=== PATIENT | male | born 1950 | race Hispanic/Latino ===

== ENCOUNTER 2018-04-10 20:18 | Emergency (ER) | payer MEDICARE, OTHER ==
[2018-04-10 20:25] VITALS: RESP 18
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
[2018-04-10 21:34] LABS: BASO # 0.1 K/uL (0.0-0.2); BASO % 1.3 % (0.0-2.0); EOS # 0.1 K/uL (0.0-0.7); EOS % 1.3 % (0.0-4.0); HEMOGLOBIN 14.2 g/dL (12.0-18.0); LYMPH # 1.7 K/uL (1.0-4.3); LYMPH % 24.9 % (20.0-40.0); MEAN CELL VOLUME 91.5 fl (80.0-94.0); MEAN CORPUSCULAR HEMOGLOBIN 30.9 pg (27.0-31.0); MEAN CORPUSCULAR HGB CONC 33.7 g/dL (33.0-37.0); MEAN PLATELET VOLUME 7.3 fl (7.2-11.7); MONO # 0.4 K/uL (0.0-0.8); MONO % 5.4 % (0.0-10.0); NEUT # 4.6 K/uL (1.8-7.0); NEUT % 67.1 % (50.0-75.0); NRBC % 0.1 % (0.0-0.0); RBC 4.6 Mil/uL (4.40-5.90); RED CELL DISTRIBUTION WIDTH 14.2 % (11.5-14.5); WHITE BLOOD COUNT 6.8 K/uL (4.8-10.8)
[2018-04-10 21:44] LABS: ALB/GLOB RATIO 1.3 (1.0-2.1); ALBUMIN 4.9 g/dL (3.5-5.0); ALT/SGPT 32 U/L (21-72); AST/SGOT 36 U/L (17-59); BLOOD UREA NITROGEN 13 mg/dl (9-20); CALCIUM 9.2 mg/dL (8.4-10.2); GFR NON-AFRICAN AMERICAN > 60
[2018-04-11] MEDS ORDERED: Lidocaine 1% w Epi 1:100,000 Inj ONE (00:40)
[2018-04-11] MEDS ORDERED: Tdap Vaccine 0.5 ml Vial (10-64 yrs) IM ONE ×2 (01:09→05:54)
[2018-04-11 01:54] LABS: URINE BILIRUBIN NEGATIVE (NEGATIVE); URINE BLOOD MODERATE (NEGATIVE); URINE CLARITY CLEAR (Clear); URINE COLOR STRAW (YELLOW); URINE GLUCOSE (UA) NEG (NEGATIVE); URINE LEUKOCYTE ESTERASE NEG Leu/uL (Negative); URINE PROTEIN NEGATIVE (NEGATIVE); URINE UROBILINOGEN 0.2-1.0 mg/dL (0.2-1.0)
[2018-04-11 02:17] LABS: BARBITURATES, UR NEGATIVE (NEGATIVE); BENZODIAZEPINES, UR NEGATIVE (NEGATIVE); OPIATES, UR NEGATIVE (NEGATIVE); PHENCYCLIDINE, UR NEGATIVE (NEGATIVE)
[2018-04-11 05:26] VITALS: BP 116/60; PULSE 91; O2SAT 98
--- NOTE | 2018-04-11 06:03 | CARD ---
APPROVED REPORT Date of service: 04/11/2018 EKG Measurement Heart [id number] <Conclusion> Normal sinus rhythm Septal infarct, age undetermined Abnormal ECG
[2018-04-11 06:59] VITALS: TEMP 98
--- NOTE | 2018-04-11 07:57 | RAD ---
Date of service: 04/11/2018 HISTORY: clearance COMPARISON: No prior. FINDINGS: LUNGS: No active pulmonary disease. PLEURA: No significant pleural effusion identified, no pneumothorax apparent. CARDIOVASCULAR: There is presence of aortic atherosclerotic calcification on x-ray. Normal cardiac size. No pulmonary vascular congestion. OSSEOUS STRUCTURES: No significant abnormalities. VISUALIZED UPPER ABDOMEN: Normal. OTHER FINDINGS: None. IMPRESSION: No active disease.
--- NOTE | 2018-04-11 09:46 | CT ---
Date of service: 04/10/2018 PROCEDURE: CT HEAD WITHOUT CONTRAST. HISTORY: etoh, head injury COMPARISON: None available. TECHNIQUE: Axial computed tomography images were obtained through the head/brain without intravenous contrast. Radiation dose: Total exam DLP = 1183.44 mGy-cm. This CT exam was performed using one or more of the following dose reduction techniques: Automated exposure control, adjustment of the mA and/or kV according to patient size, and/or use of iterative reconstruction technique. FINDINGS: HEMORRHAGE: No intracranial hemorrhage. BRAIN: No mass effect or edema. No atrophy or chronic microvascular ischemic changes. VENTRICLES: Unremarkable. No hydrocephalus. CALVARIUM: Unremarkable. PARANASAL SINUSES: Unremarkable as visualized. No significant inflammatory changes. MASTOID AIR CELLS: Unremarkable as visualized. No inflammatory changes. OTHER FINDINGS: None. IMPRESSION: No intracranial hemorrhage or mass effect. No gross soft tissue scalp swelling appreciated Concordant results (preliminary interpretation) provided by [facility].
--- NOTE | 2018-04-11 11:59 | CT ---
Date of service: 04/10/2018 PROCEDURE: CT MAXILLOFACIAL BONES WITHOUT CONTRAST HISTORY: ETOH, fall COMPARISON: Comparison made with concurrent CT scan brain. TECHNIQUE: Contiguous axial CT images of the maxillofacial bones were obtained. Coronal and sagittal reformats were generated. Radiation dose: Total exam DLP = 788.29 mGy-cm. This CT exam was performed using one or more of the following dose reduction techniques: Automated exposure control, adjustment of the mA and/or kV according to patient size, and/or use of iterative reconstruction technique. FINDINGS: NASAL BONES: There are bilateral nasal bone fractures with minor overlying soft tissue swelling. ORBITS: The bony orbits appear intact. Changes of bilateral cataract surgery however globes are otherwise intact. There are no retrobulbar hemorrhages or collections. There is mild right premaxillary soft tissue swelling that extends superiorly over the right zygomatic arch and right and superolateral orbital rim. Few bubbles of air are also present within the subcutaneous tissues overlying the right zygomatic arch suggesting skin laceration as well. Clinical correlation is recommended. PARANASAL SINUSES/ MASTOIDS: Paranasal sinuses are well developed and currently relatively well-aerated. No fluid levels seen to suggest acute hemorrhage. Move minor mucosal thickening noted within few superior ethmoid air cells. MAXILLA: The maxilla including the anterior nasal spine appears intact.. See above discussion which details right-sided pre maxillary soft tissue swelling MANDIBLE/ TEMPOROMANDIBULAR JOINTS: There is a displaced fracture of the left mandibular condyle with mild inferomedial displacement of the smaller fragment.. SKULL BASE: Unremarkable. TEMPORAL BONES: Middle ears and mastoid grossly unremarkable. OTHER FINDINGS: None. IMPRESSION: The bilateral nasal bone fractures with minor overlying soft tissue swelling. There is a fracture of the left mandibular condyle with mild inferomedial displacement of the smaller fragment. Right-sided facial soft tissue swelling associated with a few subcutaneous bubbles of air that likely due to overlying laceration as detailed above. Cataract surgery.
--- NOTE | 2018-04-11 12:38 | CT ---
Date of service: 04/10/2018 PROCEDURE: CT Cervical Spine without contrast HISTORY: ETOH, fall COMPARISON: None available. TECHNIQUE: Contiguous helical/transaxial sections were obtained of the cervical spine without the use of intravenous contrast. Coronal and sagittal reformatted images were created and reviewed. Radiation dose: Total exam DLP = 328.68 mGy-cm. This CT exam was performed using one or more of the following dose reduction techniques: Automated exposure control, adjustment of the mA and/or kV according to patient size, and/or use of iterative reconstruction technique. FINDINGS: VERTEBRAE: No evidence of acute compression fractures no retropulsed fragments.. Minor chronic appearing anterior stature loss of the C5 and C6 segments on felt to be degenerative in origin. Vertebral bodies otherwise exhibit normal stature. Slight posterior subluxation C3 over C4 and minimal posterior subluxation of C6 over C7. Remaining vertebral bodies otherwise exhibit normal alignment. Facets normally aligned. Exhibit DISCS/SPINAL CANAL/NEURAL FORAMINA: Multilevel degenerative spondylosis. At the C2-C3 level, there is adequate disc height with small central and bilateral disc bulge that indents the ventral surface of the thecal sac with no significant cord compression. The overall central canal appears adequate. Minimal degenerative squaring of the uncovertebral joints. Exit foramina appear adequate on the left and marginal to minimally narrowed on the right. At the C3-C4 level, there is disc space narrowing with broad-based though asymmetric disc ridge complex larger on the right contiguous with hypertrophic uncovertebral joints. The facets also hypertrophic. Changes result in mild canal narrowing and cord compression more so on the right side. Exit foramina are stenotic bilaterally. At the C4-C5 level, there is mild posterior disc space narrowing. Small broad-based disc bulge ridge complex contiguous with hypertrophic uncovertebral joints are noted. Facets also hypertrophic. Changes result in mild flattening of the ventral surface of the thecal sac however the central canal appears adequate. Exit foramina are narrowed bilaterally more so on the right side. At the C5-C6 level, there is disc space narrowing with cortical endplate irregularity and subchondral cystic changes. Small central and bilateral disc ridge complex also contiguous with hypertrophic uncovertebral joints. The facets are hypertrophic. The disc results in mild flattening of the ventral surface of the thecal sac nearly reaching but not significantly deforming the ventral surface of the cord. The canal is marginal to adequate at the C6-C7 level, there is disc space narrowing with cortical endplate irregularity and small central and bilateral disc bulge ridge complex contiguous with hypertrophic uncovertebral joints. The changes result in mild canal narrowing and suspected flattening of the ventral surface of the thecal sac and possibly the spinal cord; note that the canal contents are not well delineated due to some crossing streak and beam hardening artifact arising from dense clavicles and shoulder girdles PARASPINAL SOFT TISSUES: Prevertebral soft tissues unremarkable. OTHER FINDINGS: No no evidence of apical pneumothorax. Few tiny pleural based cystic changes seen right lung anterior lung apex. Minimal biapical pleural thickening also noted. IMPRESSION: No evidence of acute fractures Multilevel degenerative spondylosis as described.
== END 2018-04-11 05:45 | disposition short-term general hospital (02) ==
LOC: H.ER 20:18
DX: F10.129 Alcohol abuse with intoxication, unspecified (principal); S01.81XA Laceration without foreign body of other part of head, initial encounter; S02.2XXA Fracture of nasal bones, initial encounter for closed fracture; S02.5XXA Fracture of tooth (traumatic), initial encounter for closed fracture; S02.600A Fracture of unspecified part of body of mandible, unspecified side, initial encounter for closed fracture; S00.83XA Contusion of other part of head, initial encounter; S00.81XA Abrasion of other part of head, initial encounter; T79.7XXA Traumatic subcutaneous emphysema, initial encounter; W19.XXXA Unspecified fall, initial encounter; Y92.89 Other specified places as the place of occurrence of the external cause
CPT/HCPCS: 12011; 70450; 70486; 71045; 72125; 80053; 81003; 82948; 85025; 86850; 86900; 90471; 90715; 93005; 96372; 99285; G0480; J1630; J2060